=== PATIENT | male | born 1965 | race Caucasian/White ===

== ENCOUNTER 2017-11-18 13:21 | Emergency (ER) | payer OTHER, SELFPAY ==
[2017-11-18 13:27] VITALS: BP 112/71; PULSE 67; RESP 14; TEMP 36.8; O2SAT 100; BMI 24.3
--- NOTE | 2017-11-18 13:27 | ED.WOUNDLAC ---
HPI - Wound/Laceration General Chief Complaint: Wound/Laceration Stated Complaint: CUT LEFT WRIST Time Seen by Provider: 11/18/17 13:23 Source: patient and family Mode of arrival: ambulatory Limitations: no limitations History of Present Illness HPI narrative: 51-year-old male here for evaluation of a left wrist laceration. Patient states that he is clearing out a trailer and put his hand through a window and then cut it on a piece of glass. Patient is up-to-date on tetanus. Applied pressure before arrival. Related Data Home Medications Medication Instructions Recorded Confirmed No Known Home Medications 11/18/17 11/18/17 Allergies Allergy/AdvReac Type Severity Reaction Status Date / Time No Known Drug Allergies Allergy Verified 11/18/17 13:27 Review of Systems Constitutional Denies fatigue and Denies fever(s) Musculoskeletal Comments: no left elbow no left wrist no left hand pain Integumentary/Breasts Comments: Laceration to left wrist Neurologic Comments: no numbness or tingling left upper extremity Endocrine Denies fatigue Hematologic/Lymphatic Denies easy bleeding and Denies easy bruising [facility] Social History Smoking Status: Never smoker Exam Initial Vital Signs Initial Vital Signs: Vital Signs Temperature 98.2 F 11/18/17 13:27 Pulse Rate 67 11/18/17 13:27 Respiratory Rate 14 11/18/17 13:27 Blood Pressure 112/71 11/18/17 13:27 Pulse Oximetry 100 11/18/17 13:27 Const General: cooperative, healthy appearing, comfortable, well developed, well groomed and No acute distress Orientation: alert and awake Cardio Pulses: radial pulses present Skin Other: patient with a 4 cm linear laceration to the volar aspect of the left wrist proximal to the joint. Neuro Other: Sensation intact to light touch left upper extremity Extrem Other: left elbow unremarkable left forearm unremarkable except for the laceration left wrist unremarkable patient able to flex and extend at the wrist and all fingers without problems Procedures Laceration Repair Laceration 1: Site: upper extremity Side (If applicable): left Size (cm): 4 Description: linear Depth: simple, single layer Local Anesthetic: lidocaine 1% Amount of anesthesia used (mL): 3 Pre-repair: wound explored, irrigated extensively and deep structures intact Skin layer closed with: nylon Size (cm): 5-0 Number of sutures: 6 Technique: simple, interrupted Course Orders Ordered: Discontinued Medications Bacitracin (Bacitracin) 1 applic TOP NOW ONE Stop: 11/18/17 13:39 Lidocaine/Sodium Bicarbonate (Buffered Lidocaine 10 Ml Syr) 10 ml INJ NOW ONE Stop: 11/18/17 13:28 Last Admin: 11/18/17 13:35 Dose: 10 ml Vital Signs - 8 hr 11/18/17 13:27 Temperature 98.2 F Pulse Rate 67 Respiratory Rate 14 Blood Pressure 112/71 Pulse Oximetry 100 MDM - Wound/Laceration MDM Narrative Medical decision making narrative: left wrist laceration patient up-to-date on tetanus patient and family given care instructions with regard to the sutures. They are given return precautions. They have an appointment in approximately 10 days with his provider was other medical issues. Sutures will be removed at that time. Discharge Plan Departure Patient Disposition: Home, Self-Care Clinical Impression: Laceration Instructions: How to Care for a Laceration After Repair, DI for Laceration Repair Activity Restrictions/Additional Instructions: keep the wound clean and keep it dry. You can shower like normal. Do not scrub the area. You can cover with a bandage. the stitches do need to be removed in approximately 10 days. Return to the emergency department for any new or worsening symptoms Prescriptions: No Action No Known Home Medications RF: 0
[2017-11-18] MEDS: SODIUM BICARBONATE 8.4% INJ (13:35)
[2017-11-18] MEDS: LIDOCAINE 1% INJ (13:35)
[2017-11-18] MEDS: BACITRACIN OINT 0.9 GM PCKT 1 APPLIC TOP (13:56)
[2017-11-18 13:59] VITALS: BP 109/64; PULSE 54; RESP 14; O2SAT 98
== END 2017-11-18 14:01 | disposition home or self-care (01) ==
PROVIDERS: Emergency Provider Emergency Medicine
DX: S61.512A Laceration without foreign body of left wrist, initial encounter (principal); W25.XXXA Contact with sharp glass, initial encounter
CPT/HCPCS: 12002; 99282; 99283